=== PATIENT | male | born 1990 | race Caucasian/White ===

== ENCOUNTER 2017-02-15 11:20 | Emergency (ER) | payer SELFPAY ==
[2017-02-15 11:37] VITALS: BP 137/81
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
[2017-02-15] MEDS ORDERED: BOOSTRIX IM ONE (12:25)
[2017-02-15] MEDS ORDERED: TENIVAC IM ONE (12:30)
--- NOTE | 2017-02-15 12:53 | XRay Report ---
LEFT SHOULDER, 2 views: History: Left shoulder pain. There is a mildly displaced fracture through the middle third of the left clavicle. Inferior displacement of the distal fragment measures 2-3 mm. No calcified callus. The remainder of the left shoulder is normal. IMPRESSION: Left clavicle fracture.
--- NOTE | 2017-02-15 12:53 | XRay Report ---
RIGHT TIBIA/FIBULA: History: Pain AP and lateral views of the right tibia/fibula demonstrate normal mineralization and contours for this patient's age. No destructive changes are noted and the adjacent soft tissues are normal. IMPRESSION: Unremarkable right tibia/fibula.
== END 2017-02-15 13:32 | disposition home or self-care (01) ==
LOC: ED 11:20
DX: S42.025A Nondisplaced fracture of shaft of left clavicle, initial encounter for closed fracture (principal); M79.604 Pain in right leg; F17.200 Nicotine dependence, unspecified, uncomplicated; V89.2XXA Person injured in unspecified motor-vehicle accident, traffic, initial encounter; Y93.89 Activity, other specified; Y99.9 Unspecified external cause status; Y92.410 Unspecified street and highway as the place of occurrence of the external cause
CPT/HCPCS: 90471; 90714; 90715